=== PATIENT | female | born 1990 | race Caucasian/White ===

== ENCOUNTER 2023-12-27 21:21 | Emergency (ER) | payer BC ==
[~2023-12-27] VITALS: Ht 157.4 cm; Wt 72.6 kg
[2023-12-27 22:00] LABS: BASO % 0.4 % (0.0-1.0); EOS # 0.1 10*3/uL (0.0-0.4); EOS % 0.6 % (1.0-4.0); HEMATOCRIT 43.3 % (37.0-47.0); LYMPH # 1.8 10*3/uL (1.3-4.4); LYMPH % 22.7 % (27.0-41.0); MEAN CELL VOLUME 92.1 fl (81.0-99.0); MEAN CORPUSCULAR HGB 30.2 pg (27.0-31.0); MEAN CORPUSCULAR HGB CONC 32.8 g/dl (33.0-37.0); MEAN PLATELET VOLUME 8.4 fl (9.6-12.3); MONO # 0.5 10*3/uL (0.1-1.0); MONO % 6.3 % (3.0-9.0); NEUT # 5.5 10*3/uL (2.3-7.9); NEUT % 69.7 % (47.0-73.0); PLATELET COUNT AUTOMATED 245 10*3/uL (130-400); RED CELL DISTRI WIDTH 11.6 % (0-14.5); WHITE BLOOD COUNT 7.9 10*3/uL (4.8-10.8)
[2023-12-27 22:21] LABS: ALKALINE PHOSPHATASE 59 U/L (46-116); BUN 12 mg/dl (9-23); CHLORIDE 106 mmol/L (98-107); POTASSIUM 3.8 mmol/L (3.4-5.1); SGPT/ALT 10 U/L (5-49); TOTAL PROTEIN 7.5 gm/dL (6.0-8.0)
[2023-12-27] MEDS ORDERED: MEDI-MECLIZINE25 MG PO (23:59)
== END 2023-12-28 00:11 | disposition home or self-care (01) ==
LOC: ED 21:21
PROVIDERS: Internal Medicine
DX: H81.10 Benign paroxysmal vertigo, unspecified ear (principal); R07.89 Other chest pain; R06.02 Shortness of breath; Z88.1 Allergy status to other antibiotic agents

== ENCOUNTER 2024-01-31 20:47 | Emergency (ER) | payer BC ==
[~2024-01-31] VITALS: Ht 157.4 cm; Wt 70.8 kg
[~2024-01-31 20:47] MED LIST: MEDI-MECLIZINE25 MG PO
[2024-01-31] MEDS ORDERED: diphenhydrAMINE hydrochloride 50 MG/ML VIAL IV ONE (21:30)
[2024-01-31] MEDS ORDERED: ACETAMINOPHEN 325 MG TAB PO ONE (21:30)
[2024-01-31] MEDS ORDERED: Metoclopramide Hydrochloride 10 MG/2 ML AMP IV ONE (21:30)
[2024-01-31] MEDS ORDERED: SODIUM CHLORIDE 0.9% 1,000 ML IV ONE (21:30)
[2024-01-31] MEDS ORDERED: Ketorolac Tromethamine 30 MG/ML VIAL IV ONE (21:30)
[2024-01-31] MEDS ORDERED: BENICAR20 MG PO (21:56)
[2024-01-31] MEDS ORDERED: AIMOVIG AU140 MG/1 M SQ (21:56)
[2024-01-31] MEDS ORDERED: LORAZEPAM0.5 M1 PO (21:57)
[2024-01-31] MEDS ORDERED: LAMOTRIGINE100 MG PO (21:57)
[2024-01-31] MEDS ORDERED: TRAZODONE50 MG PO (21:57)
[2024-01-31] MEDS ORDERED: NURTEC ODT75 MG PO (21:57)
[2024-01-31] MEDS ORDERED: CAPLYTA42 MG PO (21:58)
[2024-01-31] MEDS ORDERED: REGLAN10 M1 PO (22:21)
== END 2024-01-31 22:32 | disposition home or self-care (01) ==
LOC: ED 20:47
DX: R51.9 Headache, unspecified (principal); Z88.1 Allergy status to other antibiotic agents; Z79.899 Other long term (current) drug therapy

== ENCOUNTER 2025-07-01 08:45 | Emergency (ER) | payer OTHER ==
[~2025-07-01] VITALS: Ht 157.4 cm; Wt 68.0 kg
[~2025-07-01 08:45] MED LIST changes: +AIMOVIG AU140 MG/1 M SQ; +BENICAR20 MG PO; +CAPLYTA42 MG PO; +LAMOTRIGINE100 MG PO; +LORAZEPAM0.5 M1 PO; +NURTEC ODT75 MG PO; +REGLAN10 M1 PO; +TRAZODONE50 MG PO
[2025-07-01] MEDS ORDERED: FAMOTIDINE 20 MG TAB PO ONE (09:00)
[2025-07-01] MEDS ORDERED: diphenhydrAMINE hydrochloride 50 MG/ML VIAL IM ONE (09:00)
[2025-07-01] MEDS ORDERED: PREDNISONE20 M1 PO (09:20)
== END 2025-07-01 09:35 | disposition home or self-care (01) ==
LOC: ED 08:45
DX: L23.7 Allergic contact dermatitis due to plants, except food (principal); Z88.1 Allergy status to other antibiotic agents; Z79.899 Other long term (current) drug therapy

== ENCOUNTER 2025-07-20 13:00 | Emergency (ER) | payer OTHER ==
[~2025-07-20] VITALS: Ht 157.4 cm; Wt 68.0 kg
[~2025-07-20 13:00] MED LIST changes: +PREDNISONE20 M1 PO
[2025-07-20] MEDS ORDERED: SODIUM CHLORIDE 0.9% 1,000 ML IV SCH (13:30)
[2025-07-20 13:41] LABS: BASO # 0.0 10*3/uL (0.0-0.1); BASO % 0.2 % (0.0-1.0); EOS # 0.0 10*3/uL (0.0-0.4); EOS % 0.1 % (1.0-4.0); MEAN CELL VOLUME 92.9 fl (81.0-99.0); MEAN CORPUSCULAR HGB 30.4 pg (27.0-31.0); MEAN PLATELET VOLUME 8.7 fl (9.6-12.3); MONO # 0.8 10*3/uL (0.1-1.0); MONO % 5.8 % (3.0-9.0); NEUT # 12.7 10*3/uL (2.3-7.9); NEUT % 88.3 % (47.0-73.0); NUCLEATED RED BLOOD CELL 0.0 % (0.0-0.0); NUCLEATED RED BLOOD CELL 0.0 10*3/uL (0.0-0.0); PLATELET COUNT AUTOMATED 211 10*3/uL (130-400); RED CELL DISTRI WIDTH 12.3 % (0-14.5)
[2025-07-20 14:02] LABS: BUN 11 mg/dl (9-23); SGPT/ALT 12 U/L (5-49)
[2025-07-20] MEDS ORDERED: Ondansetron Hydrochloride 4 MG/2 ML VIAL IV ONE (14:15)
[2025-07-20] MEDS ORDERED: diphenhydrAMINE hydrochloride 50 MG/ML VIAL IV ONE ×2 (14:15→16:00)
[2025-07-20] MEDS ORDERED: ACETAMINOPHEN 325 MG TAB PO ONE (14:15)
[2025-07-20 14:20] LABS: BILIRUBIN Negative (Negative); BLOOD Trace-Lysed (Negative); CLARITY Cloudy (Clear); COLOR Yellow (Yellow); KETONE Trace (Negative); LEUKO ESTERASE 3+ (Negative); NITRITE Positive (Negative); PH 6.0 (4.5-8.0); SPECIFIC GRAVITY 1.015 (1.001-1.030); UROBILINOGEN 0.2 E.U./dl (0.0-1.0)
[2025-07-20 14:40] LABS: BACTERIA 4+
[2025-07-20 14:41] LABS: WBC 41-50 wbc/hpf (0-5)
[2025-07-20] MEDS ORDERED: HYDROmorphONE Hydrochloride 0.5 MG/0.5 ML SYRINGE IV ONE (16:00)
[2025-07-20] MEDS ORDERED: Metoclopramide Hydrochloride 10 MG/2 ML VIAL IV ONE (16:00)
== END 2025-07-20 19:19 | disposition short-term general hospital (02) ==
LOC: ED 13:00
PROVIDERS: Nurse Practitioner Family
DX: N13.2 Hydronephrosis with renal and ureteral calculous obstruction (principal); A41.9 Sepsis, unspecified organism; N39.0 Urinary tract infection, site not specified; B34.9 Viral infection, unspecified; R31.9 Hematuria, unspecified; R10.9 Unspecified abdominal pain; Z88.1 Allergy status to other antibiotic agents; Z87.442 Personal history of urinary calculi; Z20.822 Contact with and (suspected) exposure to COVID-19